=== PATIENT | female | born 1955 | race Caucasian/White ===

== ENCOUNTER 2016-08-17 19:18 | Emergency (ER) | payer OTHER ==
[~2016-08-17] VITALS: Ht 172.7 cm; Wt 73.6 kg
[~2016-08-17 19:18] MED LIST: CEPH-512 PO
[2016-08-17 19:21] VITALS: BP 124/72; PULSE 93; RESP 20; O2SAT 96
[2016-08-17 20:35] LABS: APPEARANCE,URINE TURBID (CLEAR,HAZY); COLOR,URINE BLOODY (YELLOW)
--- NOTE | 2016-08-17 20:40 | ED.REPORT ---
HPI-Abd Pain F 40 and Over Date of Service Aug 17, 2016 ED Provider: Dr. Reilly Bonds MD A 53 year old female with a history of MS and UTI presents to the ED complaining of hematuria that began around 1899. Associated symptoms include dysuria, malaise and nausea. She had a similar episode 5 years ago but believes this episode is worse. Patient had a kidney infection in 04/2016. She denies fever, chills or vomiting. Nursing Notes Stated Complaint: BLADDER INFECTION Chief Complaint: Female Abdominal Pain Nursing Notes Reviewed: Yes Allergies: Coded Allergies: hydrocodone (Verified Allergy, Intermediate, itching, 04/01/16) Scheduled Cephalexin (Keflex) 500 Mg Capsule 250 MG PO QID General Time Seen by MD: 20:39 Chief Complaint Other (Hematuria) Hx Obtained From: Patient Arrived By: Walk-in Sudden in Onset?: No Onset Occurred: 1 - 4 hours ago (1899) Symptom Duration: Since onset Progression since Onset: Unchanged Associated with: Reports: Dysuria, Hematuria, Nausea, Denies: Fever, Vomiting Pertinent Negative: Pt denies other symptoms Recent Healthcare: No recent doctor visit, No recent hospitalization Past Medical History Past Medical History Notes: PCP: Dr. Ramila Villareal Past Medical History MS Kidney infection 04/2016 UTI Past Surgical History Knee surgery x 2 Hernia repair Tonsillectomy Cholecystectomy Appendectomy Family History Noncontributory Smoking History Never Smoker Social History Alcohol Use: Denies alcohol use Drug Use: Denies drug use Other Social History: Good social support, Local resident Ambulatory Status Independent Review of Systems Constitutional: Reports: Malaise, Denies: Chills, Fever Respiratory: Denies: Shortness of breath Cardiovascular: Denies: Chest pain GI: Reports: Nausea, Denies: Abdominal pain, Vomiting Female: Reports: Dysuria, Hematuria Complete sys rev & neg: except as marked. Neurologic: Denies: Change LOC, Headache Physical Exam Vital Signs Vital Signs (First) Date Time Temp Pulse Resp B/P Pulse Ox O2 Delivery O2 Flow Rate FiO2 08/17/16 19:21 36.4 93 20 124/72 96 Room Air Initial VS: Reviewed Head / Eyes: Atraumatic, Normocephalic, PERRL Extremities: Vascular intact, Neuro intact, No swelling, No tenderness Skin: Warm, Dry, No cyanosis Neurologic: Alert, Oriented, Nonfocal Psychiatric: Mood/affect normal, Behavior normal, Normal thought content General/Constitutional: Awake, Alert Respiratory / Chest: Atraumatic Cardiovascular: Heart rate NL Abdomen: Atraumatic, Soft Back: Atraumatic, Inspection NL, No CVA tenderness Interpretation & Diagnostics Lab Results Interpretation Test 08/17/16 19:52 Urine Color Bloody (YELLOW) Urine Appearance Turbid (CLEAR,HAZY) Urine pH (5.0-8.0) Urine Specific [place] 1.027 (1.003-1.035) Urine Protein mg/dL (NEG,TRACE) Urine Glucose (UA) mg/dL (NEGATIVE) Urine Ketones mg/dL (NEGATIVE) Urine Occult Blood (NEGATIVE) Urine Nitrite (NEGATIVE) Urine Bilirubin (NEGATIVE) Urine Urobilinogen mg/dL (NORMAL) Urine Leukocyte Esterase (NEGATIVE) Urine RBC Packed/hpf (0-2) Urine WBC 6-10/hpf (0-5) Urine Epithelial Cells Occasional/hpf (NONE-MOD) Urine Crystals None seen (NONE SEEN) Urine Bacteria Few/hpf (NONE-FEW) Urine Hyaline Casts None/lpf (NONE) Urine Granular Casts None seen (NONE SEEN) Urine Waxy Casts None seen (NONE SEEN) Urine Red Blood Cell Casts None seen (NONE SEEN) Urine White Blood Cell Casts None seen (NONE SEEN) Urine Mucus None seen (None Seen) Urine Trichomonas None seen (NONE SEEN) Urine Yeast None (NONE SEEN) Urinalysis Comment Color interference Urine Culture Reflexed Indicated Re-Eval/Medical Decision Re-Evaluation/Progress : Time of Eval: 20:55 Patient Status: Condition improved Re-Evaluation/Progress Note: Patient is rechecked. She is informed of her lab results and diagnosis. All of the patient's questions are addressed. She understands and agrees with the treatment plan. Counseled Regarding: Diagnosis, Lab results, Need for follow-up, When/why to return to ED Discharge & Departure Primary Impression: Urinary tract infection Urinary tract infection type: acute cystitis Hematuria presence: with hematuria Qualified Code: N30.01 - Acute cystitis with hematuria Disposition: Home Discharge Condition All VS Reviewed: Yes Condition: Stable Patient Instructions: Urinary Tract Infection in Women (DC) Additional Instructions: UA shows infection and blood, this is not unusual with infection. Take cephalexen 500mg 4 times a day for 5 days. Get adequate fluids, return to ED for fevers, side pain, vomiting or if unable to void. Follow up with primary care in 3-4 days for re-check. Referrals: Ramila Villareal (PCP) Scribe Attestation Portions of this note were transcribed by Sara Mcneill. I, Dr. Bonds personally performed the history, physical exam and medical decision-making; I reviewed and confirmed the accuracy of the information in the transcribed note. Signed by: Sara Mcneill, 08/17/16, 2100. copies to: Ramila Villareal Donald L MD Aug 17, 2016 20:39 SARA MCNEILL Aug 17, 2016 20:56
[2016-08-17] MEDS ORDERED: _Cephalexin 500 mg Capsule PO SCH (21:30)
== END 2016-08-17 21:32 | disposition home or self-care (01) ==
LOC: SED 19:18
DX: N30.01 Acute cystitis with hematuria (principal); Z87.440 Personal history of urinary (tract) infections; Z88.5 Allergy status to narcotic agent; Z86.19 Personal history of other infectious and parasitic diseases